=== PATIENT | female | born 1995 | race American Indian/Alaskan Native ===

== ENCOUNTER 2020-12-10 05:06 | Emergency (ER) | payer MEDICAID, OTHER ==
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
[2020-12-10 09:27] VITALS: BP 148/99
== END 2020-12-10 09:54 | disposition home or self-care (01) ==
LOC: ED 05:06
DX: S80.212A Abrasion, left knee, initial encounter (principal); R51.9 Headache, unspecified; F17.200 Nicotine dependence, unspecified, uncomplicated; V49.49XA Driver injured in collision with other motor vehicles in traffic accident, initial encounter; W22.10XA Striking against or struck by unspecified automobile airbag, initial encounter; Y93.89 Activity, other specified; Y92.410 Unspecified street and highway as the place of occurrence of the external cause; Y99.8 Other external cause status
CPT/HCPCS: 70450; 72125